=== PATIENT | male | born 1995 | race Caucasian/White ===

== ENCOUNTER 2017-02-16 12:02 | Emergency (ER) | payer MEDICAID ==
[2017-02-16 12:26] VITALS: PULSE 67; RESP 16; TEMP 98.1; O2SAT 97
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
[2017-02-16] MEDS ORDERED: IBUPROFEN 600 MG TAB PO ONE (13:50)
[2017-02-16] MEDS: IBUPROFEN 200 MG TAB PO ONE (13:52)
== END 2017-02-16 13:53 | disposition home or self-care (01) ==
DX: S20.211A Contusion of right front wall of thorax, initial encounter (principal); Y04.0XXA Assault by unarmed brawl or fight, initial encounter; Y99.8 Other external cause status